=== PATIENT | female | born 1990 | race Caucasian/White ===

== ENCOUNTER 2016-07-03 19:34 | Emergency (ER) | payer OTHER ==
[2016-07-03 19:49] VITALS: BP 125/74; PULSE 88; RESP 18; TEMP 97.7; O2SAT 100
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
== END 2016-07-03 20:30 | disposition home or self-care (01) ==
LOC: CED 19:34
DX: S16.1XXA Strain of muscle, fascia and tendon at neck level, initial encounter (principal); F17.200 Nicotine dependence, unspecified, uncomplicated; V89.2XXA Person injured in unspecified motor-vehicle accident, traffic, initial encounter; Y92.410 Unspecified street and highway as the place of occurrence of the external cause